=== PATIENT | female | born 1965 | race Caucasian/White ===

== ENCOUNTER 2016-09-11 15:34 | Observation (INO) ==
[2016-09-11] MEDS ORDERED: SALINE LOCK IV FLUID XX ONE (15:45)
[2016-09-11] MEDS ORDERED: NITROGLYCERIN TOP ONE (15:45)
[2016-09-11] MEDS ORDERED: ZOFRAN IV PRN (15:45)
[2016-09-11] MEDS ORDERED: TYLENOL PO PRN (15:45)
[2016-09-11] MEDS ORDERED: MORPHINE IV PRN (15:53)
[2016-09-11] MEDS: HUMULIN R SUBQ SCH ×2 (16:09→22:38)
[2016-09-11 16:17] LABS: MANUAL DIFF NEEDED? NO
[2016-09-11 16:23] LABS: BASO% 0.7 % (0.0-0.8); EOS# 0.17 X1000 (0.0-0.7); EOS% 1.8 % (0.0-10.0); HEMATOCRIT 41.4 % (37.0-47.0); IMM GRAN# 0.03 X1000 (0.0-0.04); IMM GRAN% 0.3 % (0.0-0.5); LYMPH# 3.44 X1000 (1.2-3.4); LYMPH% 37.3 % (20.5-51.1); MCH 28.3 PG (27-31); MCHC 33.8 g/dL (33-37); MCV 83.6 FL (81-99); MONO# 0.72 X1000 (0.11-0.59); MONO% 7.8 % (1.7-9.3); MPV 10.6 FL (7.4-10.4); NEUT% 52.1 % (42.2-75.2); PLT 375 X1000 (130-400); RBC 4.95 XMIL (4.2-5.4)
[2016-09-11] MEDS ORDERED: LOVENOX SUBQ ONE (16:26)
--- NOTE | 2016-09-11 16:32 | EKG Report ---
Test Performed on : 09/11/2016 4:18:02 PM Test Reason : Chest pain Blood Pressure : / mmHG Vent. Rate : 066 BPM Atrial Rate : 066 BPM P-R Int : 148 ms QRS Dur : 088 ms QT Int : 450 ms P-R-T Axes : 019 -02 -14 degrees QTc Int : 471 ms Normal sinus rhythm. Nonspecific ST and T wave abnormality III and AVF RSR' or QR pattern in V1 suggests right ventricular conduction delay Nonspecific T wave abnormality precordial Normal ECG No previous ECGs available Confirmed by Harsha Fuller DO ([id number]) on 09/12/2016 6:46:19 PM
[2016-09-11 16:33] LABS: INR 0.97; PROTIME 10.3 Seconds (9.2-11.7); PTT 25.3 Seconds (22.0-36.0)
[2016-09-11] MEDS: TOPROL XL PO SCH ×3 (16:44→22:26)
[2016-09-11 16:45] LABS: AGAP 12; ALBUMIN 4.5 g/dL (3.5-5.0); ALKALINE PHOSPHATASE 56 U/L (32-104); BUN 13 mg/dL (8-22); CALCIUM 9.3 mg/dL (8.8-10.2); CHLORIDE 94 mmol/L (98-107); COSMO 263; GOT 27 U/L (10-30); GPT 24 U/L (10-36); POTASSIUM 4.1 mmol/L (3.5-5.1); SODIUM 130 mmol/L (136-145); TCO2 24 mmol/L (25-35); TOTAL BILIRUBIN 0.42 mg/dL (0.20-1.00); TOTAL PROTEIN 6.7 g/dL (6.3-8.3)
[2016-09-11] MEDS ORDERED: FLUZONE QUAD 2016-2017 SYRINGE IM ONE (16:52)
--- NOTE | 2016-09-11 17:13 | HISTORY AND PHYSICAL ---
CHIEF COMPLAINT: Chest pain, palpitations. HISTORY OF PRESENT ILLNESS: The patient is a 51-year-old white female, followed in my medical practice who presents stating that about 1 week ago she had an initial episode of midsternal chest pain she describes as a pressure-like sensation. She noted that came on and she watched her heart rate go into the low 100s. This all occurred while she was at rest and lasted for a few minutes and then resolved. She took aspirin and that seemed to help it resolve. She noted a bitemporal headache with that particular incident. Yesterday she walked on the treadmill and after she got off the treadmill had some recurrent mild chest pressure midsternal area which resolved after a few minutes and then again today this morning, she had chest pain that has persisted through the day she describes as a dull pressure sensation radiating to her left temporal area and into her left back area and shoulder area. It is still persisting presently. MEDICATIONS: Prior to admission are aspirin 81 mg daily. As of April she was Minivelle patch per Dr. Cobian, her DJ INSTRUCTOR. Invokana 300 mg daily. Fenofibrate 145 mg daily. Lipitor 80 mg at bedtime. Metformin ER 500 mg p.o. daily with breakfast. Cymbalta 60 mg p.o. daily. ALLERGIES: To Rocephin. She had a reaction to that in May 2016. PAST MEDICAL HISTORY: 1. Perennial allergic rhinitis. 2. Hyperlipidemia diagnosed 1998. 3. Chronic tear left biceps tendon. 4. Type 2 diabetes mellitus diagnosed 2010. 5. Obesity. PAST SURGICAL HISTORY: 1. Tonsillectomy. 2. Left arthroscopic knee surgery. 3. Cholecystectomy in 1996. 4. Left CTS release December 2009. 5. Left shoulder decompression surgery. 6. Vein stripping in 2013. 7. Left shoulder arthroscopy in October 2015. FAMILY HISTORY: Notable for grandmother with NM and mother with coronary artery disease. Father with AAA. Paternal grandfather with CAD and CHF. Hypertension in her father. No cancer in the family. Grandmother with stroke. Diabetes mellitus in her grandmother and aunt. SOCIAL HISTORY: Patient lives in [place]. She is . She quit smoking November 2015 and has about a 10 pack year history of smoking. She has 1 child. Does not drink alcohol. She previously had worked at [employer]. REVIEW OF SYSTEMS: Negative except as above. PHYSICAL EXAM: Weight 278, blood pressure 118/78, pulse 72. GENERAL: Moderately obese white female, in no acute distress. SKIN: Warm and dry. No rashes. HEENT: NC/AT, JORDAN, EOMI. Sclerae clear. TMs normal. OP no redness. Tongue in the midline. NECK: No LA, TMG, JVD, bruits. CV: RRR without murmur. LUNGS: CTA. Chest wall nontender. ABDOMEN: Protuberant, soft. No mass or organomegaly. EXTREMITIES: No calf tenderness or cords. May be trace ankle edema. Peripheral pulses 2+. NEUROLOGIC: Cranial nerves 2-12 are intact. No focal deficits. EKG: NSR with nonspecific anterolateral ST changes and inferior nonspecific ST changes as well. ASSESSMENT: 1. Chest pain. 2. Palpitations. 3. Type 2 diabetes mellitus. 4. Hyperlipidemia. 5. Obesity. 6. History of chronic tear to the left biceps tendon. 7. PAR. PLAN: At this time we will admit the patient to [facility] on telemetry with serial cardiac enzymes, troponin levels. Place her on aspirin, nitroglycerin paste topically, morphine as needed for pain. We will ask Cardiology to see the patient in consultation. Check fasting lipid profile in the morning. Check chest x-ray and we will check echocardiogram. We will also check thyroid function tests and hemoglobin A1c, monitoring serial Accu-Cheks.
--- NOTE | 2016-09-11 17:18 | CONSULTATION ---
DATE OF CONSULTATION: 09/11/2016 CARDIOLOGY CONSULTED FOR: Chest pain. HISTORY OF PRESENT ILLNESS: Ms. Gisselle Huggins is a 51-year-old lady who has obesity, diabetes, hypercholesterolemia, comes with complaints of having chest pain for the last 1 week. She has noticed increasing fatigue as well associated with the chest pain. She has had shortness of breath. She describes the chest pain as a pressure-like sensation which initially lasted for 30 minutes radiating to her shoulder and to her jaw and the left side of her neck. Over the last few days the duration of the symptoms lasted longer, had similar character of pressure and radiation to the jaw and the left arm associated with shortness of breath. There is no diaphoresis. There is no palpitation. There is no dizziness or syncope. She was admitted from Dr. Wall's office. Electrocardiogram done there revealed normal sinus rhythm, nonspecific ST-T changes. Her mother had coronary artery disease and stent placement in her 60s. She is has been taking her medications regularly. REVIEW OF SYSTEMS: Fourteen-point review of systems was done.GI: There is no history of nausea, vomiting, diarrhea. There is no history of melena. Central nervous system: No focal weakness to suggest CVA or TIA. Genitourinary: There is no dysuria or hematuria. Respiratory: There is no history of cough, expectoration, hemoptysis. There is no history of fevers or chills. Endocrine: Stable. PAST MEDICAL HISTORY: 1. Hypercholesterolemia. 2. Diabetes. 3. Gastroesophageal reflux disease. PAST SURGICAL HISTORY: 1. Ablation venous by lower extremities. 2. Hysterectomy. 3. Cholecystectomy. 4. Left shoulder surgery. 5. Left knee surgery. ALLERGIES: SHE IS ALLERGIC TO MSG AND ROCEPHIN. PHYSICAL EXAMINATION: Vital Signs: Blood pressure per chart was stable. Cardiovascular System: Normal jugular venous pressure. There is no thyromegaly. No carotid bruit. First and second heart sounds were heard. Heart rate was 80. Abdomen: Was obese, soft, nontender. There was no guarding or rigidity. Bowel sounds were heard. Central nervous system: Alert and was moving all 4 extremities. Extremities: Examination of extremities revealed no pedal edema. HEENT: Atraumatic, normocephalic. Pupils were equal and reacting to light. ASSESSMENT AND PLAN: Ms Gisselle Huggins is a 51-year-old lady with obesity, diabetes, hypercholesterolemia, was a smoker, quit smoking a year ago, had smoked for at least 20 years. Comes with complaints of recurrent chest pain associated with shortness of breath. Patient has unstable angina. Given this, I have recommended that she undergo a left heart catheterization. Risks, benefits, alternatives were explained. Patient will be set up for left heart catheterization in the morning. In addition to her medications will put her on aspirin, Lovenox and beta-blockers. Will also get an electrocardiogram and an echocardiogram to assess cardiac and valvular function. We will get serial cardiac enzymes. Her CBC, BMP and lipid profile all the labs are pending. Chest x-ray is also pending. Thank you for the consult. Will follow hospital course. Sincerely
--- NOTE | 2016-09-11 17:52 | Diag Imaging Result Document ---
PROCEDURE NAME: CHEST-2 VIEWS - 09/11/2016 TWO VIEWS OF THE CHEST: FINDINGS: The appearance of the chest has not changed significantly since 05/10/2012. The heart size and pulmonary vascularity are within normal limits. IMPRESSION: No acute disease.
[2016-09-11] MEDS: NITROGLYCERIN SL PRN (19:38)
[2016-09-12 06:15] LABS: HDL 30 mg/dL (45-65); LDL 77 mg/dL; TRIGLYCERIDES 364 mg/dL (35-135); VLDL 73 mg/dL
[2016-09-12 06:38] LABS: HEMOGLOBIN A1C 7.2 % (4.8-6.0)
[2016-09-12] MEDS ORDERED: NS 1,000 ML ONE (06:45)
[2016-09-12] MEDS ORDERED: PRILOSEC PO SCH (07:00)
--- NOTE | 2016-09-12 07:18 | EKG Report ---
Test Performed on : 09/12/2016 07:02:19 AM Test Reason : CP Blood Pressure : / mmHG Vent. Rate : 071 BPM Atrial Rate : 071 BPM P-R Int : 120 ms QRS Dur : 078 ms QT Int : 404 ms P-R-T Axes : 017 000 -25 degrees QTc Int : 439 ms Normal sinus rhythm. RSR' or QR pattern in V1 suggests right ventricular conduction delay Abnormal ECG When compared with ECG of 11-SEP-2016 16:18, (Unconfirmed) Nonspecific ST and T wave abnormality Confirmed by Harsha Fuller DO ([id number]) on 09/12/2016 7:01:11 PM
[2016-09-12] MEDS: HUMULIN R SUBQ SCH ×3 (07:27→16:59)
[2016-09-12] MEDS ORDERED: NITROGLYCERIN ONE (08:17)
[2016-09-12] MEDS ORDERED: HEPARIN 1000 UNITS/NS 1,000 ML ONE (08:18)
[2016-09-12] MEDS: TOPROL XL PO SCH (08:48)
[2016-09-12] MEDS ORDERED: ASPIRIN PO SCH (09:00)
[2016-09-12] MEDS ORDERED: TRILIPIX PO SCH (09:00)
[2016-09-12] MEDS ORDERED: LIPITOR PO SCH (09:00)
[2016-09-12] MEDS ORDERED: DILAUDID ONE (09:05)
[2016-09-12] MEDS ORDERED: VERSED ONE (09:05)
[2016-09-12] MEDS ORDERED: CLAVE TWINSITE 32 IN 11959 ONE (09:07)
[2016-09-12] MEDS: NITROGLYCERIN SL PRN (10:16)
--- NOTE | 2016-09-12 10:43 | CARDIAC CATH REPORT ---
DATE: 09/12/2016 INDICATION FOR THE PROCEDURE: Unstable angina. PROCEDURES PERFORMED: 1. Left heart catheterization. 2. Selective coronary angiography. 3. Left ventriculogram. PROCEDURE IN DETAIL: Ms. Huggins was brought to the nuclear catheterization laboratory in a fasting state. Informed consent was obtained. She was prepped in the usual fashion. She was anesthetized over the right radial artery after Atif's test was proved adequate. A 5-Urdu sheath was placed via true Seldinger technique. Radial cocktail was administered. Catheters were introduced and hemodynamic measurements were made in the ascending thoracic aorta. Coronary angiography was performed in multiple views using JL3.5 and JR4 diagnostic catheters. Left heart catheterization and left ventriculogram was performed using the JR4. At the conclusion of the procedure, all sheaths and catheters were removed. TR band was left inflated at 11 mL of air. Good capillary refill. Good hemostasis. There was 5 mL of blood loss. No specimens. There were 60 mL of IV contrast used. FINDINGS: 1. The left main appears normal. 2. Left anterior descending and left circumflex vessels originate from the left main. Overall, they appear angiographically normal throughout their distribution. 3. Right coronary artery originates from the right coronary cusp. It appears angiographically normal. 4. Left ventriculogram demonstrates a normal ejection fraction of 55-60%. Aortic blood pressure 127/64 with a mean of 95 and the left ventricle pressure is 128/9 with an LVEDP of 14. ASSESSMENT: Ms. Huggins was brought to the catheterization laboratory for definitive determination of her coronary anatomy with the complaints of unstable angina. PLAN: She has angiographically normal coronaries with a relatively normal LVEDP and normal ejection fraction. Her etiology of chest pain does not seem ACS in origin. Further recommendations to be administered by her primary pilates instructor during this hospitalization, Dr. Gagnon.
[2016-09-12] MEDS ORDERED: LOMOTIL PO PRN (12:58)
--- NOTE | 2016-09-12 13:47 | PROGRESS NOTE ---
DATE: 09/12/2016 SUBJECTIVE: Patient in [facility] doing well generally, no chest pain. She has had onset of fairly profound diarrhea. She had a little headache with the nitroglycerin but overall is doing well status post left heart catheterization which was negative. OBJECTIVE: Vital Signs: Afebrile, pulse 61, respirations 18, blood pressure 111/67, O2 saturation room air 97%. Cardiovascular: RRR. Lungs: CTA. Abdomen: Nontender. Extremities: No edema. LABORATORY DATA: Cardiac enzymes times 3 negative. CBC negative. CMP normal. Thyroid is abnormal with free T4 0.88 and TSH of 13.09. LDL of 77, triglycerides 364. ASSESSMENT: 1. Chest pain. Thought noncardiac. Echocardiogram has been performed but has not been read yet. 2. Newly diagnosed hypothyroidism. 3. Palpitations resolved. 4. Type 2 diabetes mellitus. 5. Hyperlipidemia. 6. Obesity. 7. Diarrhea. PLAN: Start Lomotil p.r.n. while we are waiting on the echocardiogram to be read. We will go ahead and check thyroid ultrasound. If that is normal, we will start Synthroid at discharge. Otherwise I am waiting on the echocardiogram. We will treat her diarrhea and see how she does this evening and discharge home if echo is good.
--- NOTE | 2016-09-12 13:56 | Diag Imaging Result Document ---
PROCEDURE NAME: US SOFT TISSUE HEAD NECK - 09/12/2016 THYROID ULTRASOUND: FINDINGS: The thyroid is slightly inhomogeneous in echotexture. There is hyperechoic 14 mm nodule present in the left lobe. A similar hyperechoic nodule is present on the right side inferiorly measuring 12 mm. The right lobe is 5 x 1.7 x 2.2 cm and the left is 4.5 x 1.7 x 1.7 cm. IMPRESSION: Multinodular goiter.
--- NOTE | 2016-09-12 14:56 | EKG Report ---
Test Performed on : 09/12/2016 10:19:05 AM Test Reason : chest pain Blood Pressure : / mmHG Vent. Rate : 073 BPM Atrial Rate : 073 BPM P-R Int : 142 ms QRS Dur : 082 ms QT Int : 420 ms P-R-T Axes : 049 022 012 degrees QTc Int : 462 ms Normal sinus rhythm. Low voltage QRS Borderline ECG When compared with ECG of 12-SEP-2016 07:02, (Unconfirmed) T wave inversion less evident in Inferior leads RSR' or QR pattern in V1 suggests right ventricular conduction delay Nonspecific T wave abnormality Confirmed by Harsha Fuller DO ([id number]) on 09/12/2016 7:10:05 PM
--- NOTE | 2016-09-12 15:41 | ECHO REPORT ---
ORDER DATE: 09/12/2016 PROCEDURE: Echocardiogram. ECHOCARDIOGRAPHIC MEASUREMENTS: 1. Interventricular septum 1.0. 2. Left ventricular posterior wall 1.0. 3. Diastolic diameter 5.0. 4. Left atrium 3.7. 5. Aorta 2.4. INTERPRETATION: 1. Normal left ventricular cavity size. Estimated ejection fraction of 65%. 2. Pulmonic valve not well visualized. 3. Aortic valve leaflets not well visualized. 4. Technically suboptimal study. Poor acoustic window. 5. Mitral valve was normal. 6. Tricuspid valve was normal. 7. There is mild mitral regurgitation. 8. Mild tricuspid regurgitation. 9. Peak velocity across the tricuspid valve was 2.5 m/sec. 10. Peak velocity across the aortic valve less than 2 m/sec. By Doppler studies, there is no aortic stenosis or regurgitation. 11. Anterior echo-free space suggestive of pericardial fat pad was noted. 12. There is no pericardial effusion or obvious intracardiac mass or thrombus.
[2016-09-12] MEDS ORDERED: ESTRADIOL TD SCH (16:45)
[2016-09-12 17:02] VITALS: BP 115/59
[2016-09-13] MEDS ORDERED: BYETTA SUBQ SCH (07:00)
[2016-09-13] MEDS ORDERED: SYNTHROID PO SCH (07:00)
[2016-09-13] MEDS ORDERED: HYDROXYZINE PO SCH (09:00)
[2016-09-13] MEDS ORDERED: ZYRTEC PO SCH (09:00)
== END 2016-09-12 18:30 | disposition home or self-care (01) ==
LOC: DIRADM 15:34 → 3S 15:45
PROVIDERS: ADMIT Family Medicine; ATTEND Family Medicine
DX: R07.89 Other chest pain (principal); S46.212A Strain of muscle, fascia and tendon of other parts of biceps, left arm, initial encounter; E11.9 Type 2 diabetes mellitus without complications; E78.00 Pure hypercholesterolemia, unspecified; E66.9 Obesity, unspecified; Z68.42 Body mass index [BMI] 45.0-49.9, adult; Z82.49 Family history of ischemic heart disease and other diseases of the circulatory system; Z82.3 Family history of stroke; Z83.3 Family history of diabetes mellitus; Z87.891 Personal history of nicotine dependence; R53.83 Other fatigue; R06.02 Shortness of breath; G44.40 Drug-induced headache, not elsewhere classified, not intractable; T46.3X5A Adverse effect of coronary vasodilators, initial encounter; R19.7 Diarrhea, unspecified; E03.9 Hypothyroidism, unspecified; R00.2 Palpitations; Z79.899 Other long term (current) drug therapy; Z79.84 Long term (current) use of oral hypoglycemic drugs; Z23 Encounter for immunization
CPT/HCPCS: 71020; 76536; 80053; 80061; 82550; 82948; 83036; 84439; 84443; 84484; 85025; 85610; 85730; 93005; 93010; 93306; 93458; J1170; J1644; J1650; J2250; J7030; Q2038; Q9967